=== PATIENT | male | born 1955 | race Caucasian/White ===

== ENCOUNTER 2017-11-23 23:06 | Emergency (ER) | END 2017-11-24 00:30 | disposition home or self-care (01) ==

== ENCOUNTER 2018-04-24 07:13 | Emergency (ER) | payer BC ==
[~2018-04-24] VITALS: Ht 182.9 cm; Wt 90.5 kg
[2018-04-24 07:47] VITALS: BP 149/76; PULSE 101; RESP 18; Ht 182.9 cm; Wt 90.5 kg
[2018-04-24] MEDS ORDERED: ACETAMINOPHEN 500 MG TAB PO STA (08:25)
--- NOTE | 2018-04-24 08:56 | ERD ---
ER Documentation Chief Complaint Chief Complaint C/O MID. BACK PAIN, RIGHT FOOT PAIN FORM SMALL ABRASION. HPI This is a 62-year-old male with a nonsignificant past medical history presents ED with multiple complaints. Patient is complaining of left upper back pain that is been off and on since December 2017. Patient states that the pain comes and goes and he rates it an 8 out of 10. Describes it as a pounding sensation. 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 Denies chest pain, shortness breath, trouble breathing, nausea, vomiting, diarrhea, cuts patient, tingling, numbness, lack sensation, bowel/bladder incontinence, saddle prosthesis. Patient has a history of varicose veins and is having pain along his right lateral foot where his varicose vein is. Patient has not been seen by vascular surgeon. ROS All systems reviewed and are negative except as per history of present illness. Allergies Allergies: Coded Allergies: No Known Allergy (Unverified , 04/24/18) PMhx/Soc History of Surgery: Yes (R FA Surgery) Anesthesia Reaction: No Hx Neurological Disorder: No Hx Respiratory Disorders: No Hx Cardiac Disorders: No Hx Psychiatric Problems: No Hx Miscellaneous Medical Probl: No Hx Alcohol Use: Yes (social) Hx Substance Use: No Hx Tobacco Use: No Physical Exam Vitals Vital Signs Date Temp Pulse Resp B/P (MAP) Pulse Ox O2 O2 Flow FiO2 Time Delivery Rate 04/24/18 98.0 101 18 149/76 98 07:47 (100) Physical Exam Physical Exam Vitals signs: Reviewed by me. General: Well developed, well nourished, in no acute distress. Patient is awake and alert. Head: Normocephalic, atraumatic. Eyes: Normal conjunctiva, Pupils PERRLA, EOM intact grossly ENT: Pharynx is clear, Moist mucous membranes, external ears, nose and mouth normal Neck: Supple, no masses, lymphadenopathy or JVD Respiratory: Clear to auscultation bilaterally with no wheezing, rhonchi, rales, no distress Cardiovascular: RRR, no murmurs, rubs, or gallops Back: No thoracic or lumbar midline tenderness, step-off deformities, there is mild tenderness palpation along the area of the thoracic spine medial to scapula, full range of motion with flexion, extension and left and right lateral rotation, Neurologic: Alert and oriented, moving all extremities, normal speech, no focal weakness, no cerebellar signs. Normal mentation Skin: warm and dry, No rash Psych: Normal mood Results 24 hrs Current Medications Medications Dose Sig/Lola Start Time Status Last (Trade) Ordered Route PRN Stop Time Admin Dose Reason Admin 1,000 mg ONCE STAT 04/24/18 DC 04/24/18 Acetaminophen PO 08:25 08:36 (Tylenol 04/24/18 08:28 Tab) Procedures/MDM EKG, MONITORS, & DIAGNOSTIC IMAGING: [place] [id number] Radiology Main Line: [phone] DIAGNOSTIC IMAGING REPORT Patient: ANNIE WHITE : 1955 Age: 63 Sex: M MR #: [id number] DOS: 04/24/18 0833 Ordering MD: BETH CHOU PA-C Location: [facility] Room/Bed: PROCEDURE: XR Chest. CLINICAL INDICATION: pain TECHNIQUE: PA and Lateral views of the chest were obtained. COMPARISON: None. FINDINGS: Hypoventilatory chest. Heart normal limits in size. No evidence of pulmonary vascular congestion acute lung consolidation pleural effusions and pneumothorax. IMPRESSION: No evidence of congestive heart or pneumonia. RPTAT:AAJJ Physician Eleanor Date Time Electronically viewed and signed by Physician Eleanor on 04/24/2018 09:06 BM/ CC: BETH CHOU PA-C [id number] [place] [id number] Radiology Main Line: [phone] DIAGNOSTIC IMAGING REPORT Patient: ANNIE WHITE : 1955 Age: 63 Sex: M MR #: [id number] DOS: 04/24/18 0825 Ordering MD: BETH CHOU PA-C Location: [facility] Room/Bed: PROCEDURE: Thoracic spine series CLINICAL INDICATION: Pain TECHNIQUE: AP and lateral views of thoracic spine were obtained COMPARISON: None FINDINGS: No evidence of acute fractures or subluxations. Mild degenerative enthesopathy involving the thoracic spine. The bones are osteopenic without focal bony blastic or lytic lesions. Posterior elements appear intact. No paraspinous masses. IMPRESSION: Degenerative changes thoracic spine as above without acute fractures or subluxations. RPTAT:AAJJ Physician Eleanor Date Time Electronically viewed and signed by Physician Eleanor on 04/24/2018 09:13 BM/ CC: BETH CHOU PA-C [id number] EKG read by michi: Rate/Rhythm: Regular rate and rhythm at a rate of 89 Intervals: Normal Impression: No evidence of ischemia or arrhythmia No ST elevation, no peak T waves, no widened QRS, no MO interval prolongation ER COURSE: The patient was given Tylenol The medication was well tolerated and the patient reports improvement in symptoms. The patient was stable throughout ED course. I kept the patient and/or family informed of laboratory and diagnostic imaging results throughout the emergency room course. The patient was promptly evaluated and a treatment plan was devised based on H&P and other data. This plan was discussed with the patient who agreed and had no further questions or concerns prior to discharge. MEDICAL DECISION MAKING: This is a 63-year-old male with complaints of left thoracic back pain off and on since December. Chest x-ray, thoracic spine x-ray and EKG are unremarkable. Pain is elicited when palpating the area medial to left scapula -given area pain is likely musculoskeletal in nature. History and physical examination other data not consistent with processing including cauda equina syndrome, cord compression, infiltrative etiology, infectious etiology, epidural abscess, fracture, obstructive pyelonephritis, abdominal aortic aneurysm. As for patient's varicose veins advised patient to follow-up with vascular surgery. Vitals are stable and patient can be managed outpatient with close follow-up. Advised patient to follow up with primary care in the next 48 hours. return to ED with any worsening symptoms DISPOSITION PLAN: We discussed follow up with the patient's primary care doctor within 24 to 48 hours. Patient counseled regarding my diagnostic impression and care plan. Prior to discharge all questions answered. Pt agrees with treatment plan and understands strict return precautions. Precautionary instructions provided including instructions to return to the ER if not improving or for any worsening or changing symptoms or concerns. SPECIALIST FOLLOW UP RECOMMENDED: Vascular surgery for varicose veins Patient has been advised to follow up with primary care in 1-2 days. Disclaimer: Inadvertent spelling and grammatical errors are likely due to EHR/dictation software use and do not reflect on the overall quality of patient care. Also, please note that the electronic time recorded on this note does not necessarily reflect the actual time of the patient encounter. Blood Pressure Assessment: Patient's blood pressure was elevated (>120/80) but appears stable without evidence of hypertension emergency or urgency. The patient was counseled about the risks of hypertension and urged to pursue outpatient monitoring and therapy within a week with their primary care physician. Departure Diagnosis: Primary Impression: Thoracic back pain Chronicity: chronic Back pain laterality: left Qualified Codes: M54.6 - Pain in thoracic spine; G89.29 - Other chronic pain Condition: Stable Patient Instructions: Back Pain (Acute Or Chronic) Referrals: LALIT LUZ MD, [facility], [facility] Additional Instructions: Patient advised to return to the ED immediately for new or worsening symptoms. Patient advised to follow up with primary care provider in the next 24-48 hours. Patient verbalized understanding and agrees with treatment plan and course of action. If patient has no primary care they may follow up with one of the community clinics listed on the following page or one of the options listed below [facility] + [facility] [address] [place] [id number] or [facility] [address] [place] [address] or [facility] [address] [place] [address] BETH CHOU PA-C Apr 24, 2018 08:56
[2018-04-24] MEDS ORDERED: CYCL10TA7 PO (09:20)
[2018-04-24] MEDS ORDERED: ACET500C5 PO (09:20)
== END 2018-04-24 10:20 | disposition home or self-care (01) ==
LOC: EDBD 07:13 → FTE 07:13
DX: M54.6 Pain in thoracic spine (principal)
CPT/HCPCS: 71046; 72072; 93005